=== PATIENT | female | born 1985 | race Caucasian/White ===

== ENCOUNTER 2016-09-23 20:54 | Emergency (ER) | payer BC ==
[2016-09-23] MEDS ORDERED: ONDANSETRON HCL 4 MG/2 ML VIAL ONE ×2 (21:24→21:56)
[2016-09-23 21:31] LABS: BASOPHILS 0.3 % (0.0-2.0); EOSINOPHILS 1.7 % (0.0-6.0); EOSINOPHILS# 0.3 X 10^3uL (0.0-0.4); HEMATOCRIT 40.7 % (36.0-48.0); HEMOGLOBIN 14.2 g/dL (12.0-16.0); LYMPHOCYTES# 3.2 X 10^3uL (0.8-3.8); MEAN CORPUS. HGB CONCENTRATION 34.8 g/dL (32.0-36.0); MEAN CORPUSCULAR HEMOGLOBIN 30.6 pg (29.0-35.0); MEAN PLATELET VOLUME 8.3 fL (7.4-10.4); MONOCYTES 6.3 % (2.0-10.0); NEUTROPHILS 70.7 % (54.0-75.0); NEUTROPHILS# 10.7 X 10^3uL (2.6-6.7); PLATELET COUNT 326 X 10^3uL (130-440); RED BLOOD COUNT 4.62 X 10^6uL (4.20-6.10); RED CELL DISTRIBUTION WIDTH 11.9 % (11.5-14.5); WHITE BLOOD COUNT 15.2 X 10^3uL (3.9-10.7)
[2016-09-23] MEDS ORDERED: ACETAMINOPHEN 1,000 MG/100 ML VIAL IV ONE (21:38)
[2016-09-23] MEDS ORDERED: FAMOTIDINE IN SALINE, ISO-OSM 20 MG/50 ML PIGGYBACK IV ONE (21:39)
[2016-09-23 21:42] LABS: ALKALINE PHOSPHATASE 71 U/L (38-126); ALT 24 U/L (9-52); AST 21 U/L (14-36); BILIRUBIN, DIRECT 0.1 mg/dL (0.0-0.4); BLOOD UREA NITROGEN 13 mg/dL (7-17); CALCIUM 9.7 mg/dL (8.4-10.2); CHLORIDE 107 mmol/L (98-107); EST GLOMERULAR FILTRATION RATE > 60 mL/min; GLUCOSE 102 mg/dL (70-100); LIPASE 41 U/L (23-300); POTASSIUM 3.4 mmol/L (3.5-5.1); SODIUM 143 mmol/L (137-145); TOTAL PROTEIN 8.4 g/dL (6.3-8.2)
[2016-09-23] MEDS ORDERED: POTASSIUM CHLORIDE 20 MEQ/100 ML PIGGYBACK IV ONE (22:25)
[2016-09-23] MEDS ORDERED: DIPHENHYDRAMINE 50 MG/ML VIAL ONE (22:25)
[2016-09-23] MEDS ORDERED: ONDANSETRON ODT PREPAC 4 MG TAB.RAPDIS PO ONE (23:05)
--- NOTE | 2016-09-24 00:49 | ER PHYSICIAN DOCUMENTATION ---
Physician Documentation [facility] Name:Sobeida Kelly Age:31 yrs Sex:Female :1985 Arrival Date:09/23/2016 Time:20:54 Bed1 Private MD:Physician, No ED He Saavedra Disposition: 09/23/16 23:45 Discharged to Home/Self Care. Impression: Vomiting - Dehydration. - Condition is Fair. - Discharge Instructions: DEHYDRATION (7y-Adult), VOMITING (6y-Adult). - Prescriptions for Zofran 4 mg Oral Tablet - take 1 tablet by ORAL route every 12 hours .; 20 tablet. - Medical Reconciliation form form. - Follow up: Private Physician; When: As needed; Reason: Worsening of condition. Follow up: Emergency Department; When: As needed; Reason: Worsening of condition. - Problem is new. - Symptoms have improved. HPI: 09/23 23:41 This 31 yrs old Female presents to ER via Walk In with complaints of sc Nausea/Vomiting. 23:41 The patient presents to the emergency department with nausea, with vomiting, without sc any complaints of abdominal pain. Onset: The symptom(s)/episode began/occurred at 16:00. Possible causes: unknown, bad food exposure. The symptoms are alleviated by nothing. Severity of symptoms: At their worst the symptoms were severe. The patient has not experienced similar symptoms in the past. Historical: - Allergies: No known drug Allergies; - Home Meds: 1. None - PMHx: None; - PSHx: SHOULDER SURGERY; - Tetanus: > 10 years. - Ebola Screening: : Patient denies exposure to infectious person. Patient denies travel to an Ebola-affected area in the 21 days before illness onset. . - Immunization history: Flu Vaccine None. - Social history: Smoking status: Patient uses tobacco products, current every day smoker. Patient uses alcohol but reports only rare drinking. ROS: 23:41 Constitutional: Negative for fever, chills, and weight loss. sc Eyes: Negative for injury, pain, redness, and discharge. ENT: Negative for injury, pain, and discharge. Neck: Negative for injury, pain, and swelling. Cardiovascular: Negative for chest pain, palpitations, and edema. Respiratory: Negative for shortness of breath, cough, wheezing, and pleuritic chest pain. Back: Negative for injury and pain. MS/Extremity: Negative for injury and deformity. Skin: Negative for injury, rash, and discoloration. 23:41 Neuro: Negative for headache, weakness, numbness, tingling, and seizure. sc 23:41 Abdomen/GI: Positive for nausea, vomiting, Negative for diarrhea, constipation, abdominal cramps, abdominal distension, dysphagia. Exam: Head/Face: Normocephalic, atraumatic. Eyes: Pupils equal round and reactive to light, extra-ocular motions intact. Lids and lashes normal. Conjunctiva and sclera are non-icteric and not injected. Cornea within normal limits. Periorbital areas with no swelling, redness, or edema. Chest/axilla: Normal chest wall appearance and motion. Nontender with no deformity. No lesions are appreciated. Respiratory: Lungs have equal breath sounds bilaterally, clear to auscultation and percussion. No rales, rhonchi or wheezes noted. No increased work of breathing, no retractions or nasal flaring. Back: No spinal tenderness. No costovertebral tenderness. Full range of motion. MS/ Extremity: Pulses equal, no cyanosis. Neurovascular intact. Full, normal range of motion, negative Homans's, calves equal bilaterally. 23:42 Neuro: Awake and alert, GCS 15, oriented to person, place, time, and situation. sc Cranial nerves II-XII grossly intact. Motor strength 5/5 in all extremities. Sensory grossly intact. Cerebellar exam normal. Normal gait. 23:42 Constitutional: The patient appears alert, awake, in obvious distress, moderately distressed. 23:42 ENT: Mouth: Oral mucosa: dry. 23:42 Cardiovascular: Rate: tachycardic, Rhythm: regular. 23:42 Abdomen/GI: Inspection: abdomen appears normal, Bowel sounds: hyperactive, Palpation: abdomen is soft and non-tender. 23:42 Skin: Turgor: is poor, tenting is noted. Vital Signs: 21:18 BP 104 / 26; Pulse 86; Resp 21; Pulse Ox 97% on R/A; Weight 45.36 kg; Height 5 ft. 2 lb in. (157.48 cm); Pain 10/10; 21:21 Temp 97.9; lb 21:56 BP 100 / 53; Pulse 89; Resp 16; Pulse Ox 98% on R/A; lb 23:27 BP 88 / 50; Pulse 70; Resp 16; lb 09/24 00:47 BP 98 / 58; Pulse 84; Resp 14; Pulse Ox 96% on R/A; Pain 0/10; lb 09/23 21:18 Body Mass Index 18.29 (45.36 kg, 157.48 cm) lb MDM: 09/23 21:08 Patient medically screened. pa 23:43 Differential diagnosis: gastritis, appendicitis, viral gastroenteritis, sc gastroenteritis. Data reviewed: vital signs, nurses notes, lab test result(s), and as a result, I will continue to observe the patient, administer IV fluids. Counseling: I had a detailed discussion with the patient and/or guardian regarding: the historical points, exam findings, and any diagnostic results supporting the discharge/admit diagnosis, lab results, to return to the emergency department if symptoms worsen or persist or if there are any questions or concerns that arise at home. 09/23 21:33 Order name: CBC AUTO DIF, MDIF/RMOR IF IND; Complete Time: 22:02 EDTX 09/23 21:41 Order name: HCG, SERUM; Complete Time: 22:02 EDTX 09/23 21:43 Order name: BASIC METABOLIC PANEL; Complete Time: 22:02 EDTX 09/23 21:43 Order name: HEPATIC PANEL; Complete Time: 22:02 EDTX 09/23 21:43 Order name: LIPASE; Complete Time: 22:02 EDTX 09/23 21:21 Order name: Urine Dip; Complete Time: 00:47 sc Dispensed Medications: 21:18 Drug: Zofran 4 mg; Route: IVP; Infused Over: 2 mins; Site: right antecubital; lb 21:46 Follow up: Response: Nausea is decreased lb 21:19 Drug: NS 0.9% 1000 ml; Route: IV; Rate: bolus; Site: right antecubital; lb 21:46 Follow up: IV Status: Completed infusion; IV Intake: 1000ml lb 21:32 Drug: Pepcid 20 mg; Route: IVPB; Site: right antecubital; lb 23:20 Follow up: IV Status: Completed infusion; IV Intake: 50ml lb 23:20 Follow up: Response: Pain is decreased lb 21:45 Drug: Zofran 4 mg; Route: IVP; Infused Over: 2 mins; Site: right antecubital; lb 09/24 00:49 Follow up: Response: Nausea is decreased lb 09/23 21:46 Drug: Ofirmev ; MAX of 1000 mg, give 20 mg/kg; Route: IV; Rate: calculated rate; lb Infused Over: 15 mins; Site: right antecubital; 22:18 Follow up: IV Status: Completed infusion; IV Intake: 250ml lb 21:47 Drug: NS 0.9% 1000 ml; Route: IV; Rate: bolus; Site: right antecubital; lb 09/24 00:47 Follow up: IV Status: Completed infusion; IV Intake: 1000ml lb 09/23 22:18 Drug: Potassium Chloride 20 mEq; Route: IV; Rate: calculated rate; Site: right lb antecubital; 09/24 00:49 Follow up: IV Status: Completed infusion; IV Intake: 50ml lb 09/23 22:18 Drug: Phenergan 12.5 mg; Route: IVP; Site: right antecubital; lb 23:25 Follow up: Response: Nausea is decreased lb 22:18 Drug: Benadryl 12.5 mg; Route: IVP; Site: right antecubital; lb 23:25 Follow up: Response: Nausea is decreased lb 22:50 Drug: Zofran 1 tablet; Route: PO; lb 23:25 Follow up: Response: Pharmacy closed - take home med pack lb Point of Care Testing: Urine Dip: 09/24 00:09 pH: 6.0; ; Specific [place]: 1.020; Ketones: Trace; Glucose: Negative; Protein: lb Negative; Leukocytes: Negative; Nitrite: Negative ; Blood: Negative; Bilirubin: Negative ; Urobilinogen: Normal Signatures: He Iniguez MD MD sc Bollock, Lynda lb
--- NOTE | 2016-09-24 00:49 | ER NURSING DOCUMENTATION ---
Nurse's Notes [facility] Name:Sobeida Kelly Age:31 yrs Sex:Female :1985 Arrival Date:09/23/2016 Time:20:54 Bed1 Private MD:Physician, No Diagnosis:Vomiting - Dehydration Presentation: 09/23 20:58 Acuity: KESHA 3 sc1 21:15 Presenting complaint: Patient states: vomited x 15 today. new to altitude. Transition lb of care: patient was not received from another setting of care. Notified ED Physician of Dr. Iniguez notified. 21:15 Method Of Arrival: Walk In lb Triage Assessment: 21:17 General: Appears distressed, ill, Behavior is anxious, pleasant. Pain: Complains of lb pain in abdomen Pain does not radiate. Pain currently is 10 out of 10 on a pain scale. Quality of pain is described as crampy. GI: Abdomen is flat, non- distended Pt is actively vomiting bile, Bowel sounds present X 4 quads. Reports normal bowel habits, vomiting. Historical: - Allergies: No known drug Allergies; - Home Meds: 1. None - PMHx: None; - PSHx: SHOULDER SURGERY; - Tetanus: > 10 years. - Ebola Screening: : Patient denies exposure to infectious person. Patient denies travel to an Ebola-affected area in the 21 days before illness onset. . - Immunization history: Flu Vaccine None. - Social history: Smoking status: Patient uses tobacco products, current every day smoker. Patient uses alcohol but reports only rare drinking. Screenin:19 Infectious Disease Risk None. Abuse screen: Denies threats or abuse. Denies injuries lb from another. Nutritional screening: No deficits noted. Assessment: 21:19 GI: Reports nausea, vomiting. lb 09/24 00:08 GI: Abdomen is non- distended Bowel sounds present X 4 quads. lb Vital Signs: 09/23 21:18 BP 104 / 26; Pulse 86; Resp 21; Pulse Ox 97% on R/A; Weight 45.36 kg; Height 5 ft. 2 lb in. (157.48 cm); Pain 10/10; 21:21 Temp 97.9; lb 21:56 BP 100 / 53; Pulse 89; Resp 16; Pulse Ox 98% on R/A; lb 23:27 BP 88 / 50; Pulse 70; Resp 16; lb 06 00:47 BP 98 / 58; Pulse 84; Resp 14; Pulse Ox 96% on R/A; Pain 0/10; lb /08 21:18 Body Mass Index 18.29 (45.36 kg, 157.48 cm) lb ED Course: 09/23 20:55 Patient arrived in ED. ma1 20:55 Physician, No is Private Physician. de1 20:58 Triage completed. [facility] [place] 21:08 He Iniguez MD is Attending Physician. va 21:09 Glenis Dewitt is Primary Nurse. lb 21:15 Labs drawn. By tin container straightener Sent per order to lab. Inserted saline lock: 20 gauge in right em3 antecubital area and blood collected. 21:19 Valuables Remains with patient Patient has correct armband on for positive lb identification. Placed in gown. Bed in low position. Call light in reach. Side rails up X 1. Administered Medications: 21:18 Drug: Zofran 4 mg; Route: IVP; Infused Over: 2 mins; Site: right antecubital; lb 21:46 Follow up: Response: Nausea is decreased lb 21:19 Drug: NS 0.9% 1000 ml; Route: IV; Rate: bolus; Site: right antecubital; lb 21:46 Follow up: IV Status: Completed infusion; IV Intake: 1000ml lb 21:32 Drug: Pepcid 20 mg; Route: IVPB; Site: right antecubital; lb 23:20 Follow up: IV Status: Completed infusion; IV Intake: 50ml lb 23:20 Follow up: Response: Pain is decreased lb 21:45 Drug: Zofran 4 mg; Route: IVP; Infused Over: 2 mins; Site: right antecubital; lb 09/24 00:49 Follow up: Response: Nausea is decreased lb /08 21:46 Drug: Ofirmev ; MAX of 1000 mg, give 20 mg/kg; Route: IV; Rate: calculated rate; lb Infused Over: 15 mins; Site: right antecubital; 22:18 Follow up: IV Status: Completed infusion; IV Intake: 250ml lb 21:47 Drug: NS 0.9% 1000 ml; Route: IV; Rate: bolus; Site: right antecubital; lb 09/24 00:47 Follow up: IV Status: Completed infusion; IV Intake: 1000ml lb 09/23 22:18 Drug: Potassium Chloride 20 mEq; Route: IV; Rate: calculated rate; Site: right lb antecubital; 09/24 00:49 Follow up: IV Status: Completed infusion; IV Intake: 50ml lb 09/23 22:18 Drug: Phenergan 12.5 mg; Route: IVP; Site: right antecubital; lb 23:25 Follow up: Response: Nausea is decreased lb 22:18 Drug: Benadryl 12.5 mg; Route: IVP; Site: right antecubital; lb 23:25 Follow up: Response: Nausea is decreased lb 22:50 Drug: Zofran 1 tablet; Route: PO; lb 23:25 Follow up: Response: Pharmacy closed - take home med pack lb Point of Care Testing: Urine Dip: 09/24 00:09 pH: 6.0; ; Specific [place]: 1.020; Ketones: Trace; Glucose: Negative; Protein: lb Negative; Leukocytes: Negative; Nitrite: Negative ; Blood: Negative; Bilirubin: Negative ; Urobilinogen: Normal Intake: 09/23 21:46 IV: 1000ml; Total: 1000ml. lb 22:18 IV: 250ml; Total: 1250ml. lb 23:20 IV: 50ml; Total: 1300ml. lb 09/24 00:47 IV: 1000ml; Total: 2300ml. lb 00:49 IV: 50ml; Total: 2350ml. lb Outcome: 09/23 23:45 Discharge ordered by . va 09/24 00:47 Discharged to home ambulatory. lb Condition: stable Discharge Assessment: Patient awake, alert and oriented x 3. No cognitive and/or functional deficits noted. Patient verbalized understanding of disposition instructions. Instructed on discharge instructions, follow up and referral plans. IV D/[place] 00:48 Patient left the ED. lb 09/25 09:24 Discharge F/U Call: Unable to reach: no answer st 10:05 Discharge F/U Call: Spoke with: patient. Are you having any pain? no. Have you filled sc1 your prescriptions? yes. Did your discharge instructions answer all of your questions? yes Have you made a f/u appointment? No. Overall Care on a scale of 1-10 with 10 being the best care, you rate our care as: the rating of 10. Further F/U necessary? None needed Signatures: Connie Hagen, RN RN st Dewitt, NASEEM Santos RN sc1 He Iniguez MD MD sc Victoriano Lopez 3 Glenis Dewitt Melissa ma1
== END 2016-09-24 00:49 | disposition home or self-care (01) ==
LOC: ER 20:54
DX: E86.0 Dehydration (principal); R11.2 Nausea with vomiting, unspecified; F17.210 Nicotine dependence, cigarettes, uncomplicated
CPT/HCPCS: 80048; 80076; 83690; 84703; 85025; 96365; 96366; 96367; 96368; 96375; 99284; J1200; J2405; J2550; J3480